=== PATIENT | male | born 1955 ===

== ENCOUNTER → 2018-07-10 | Outpatient (REF) ==
[2018-07-10 14:41] LABS: PSA-TOTAL 0.67 ng/mL (0-4)
[2018-07-10 15:23] LABS: THYROID STIMULATING HORMONE 2.38 uIU/mL (0.465-4.680)
== END ==
LOC: ZLAB.WCH 13:56
PROVIDERS: Internal Medicine
DX: Z01.89 Encounter for other specified special examinations (principal)
CPT/HCPCS: G0103